=== PATIENT | female | born 2000 | race Two or more races ===

== ENCOUNTER 2019-10-06 01:11 | Inpatient (IN) ==
[2019-10-06 02:18] LABS: Basophils % 0.1 % (0.0-0.8); Hematocrit 27.9 VOL% (35.7-47.0); Hemoglobin 9.2 GM/DL (12.0-16.0); Immature Granulocytes % 0.9 %; Immature Granulocytes Absolute 0.17 #; Lymphocytes # 1.3 10*3/uL (1.4-4.0); Mean Platelet Volume 10.5 FL (9.6-12.0); Monocytes % 5.4 % (1.7-12.7); Neutrophils % 86.6 % (38.7-73.9); Platelet Count 323 T/CUMM (130-400); Red Cell Distribution Width 12.3 % (9.3-17.3); White Blood Count 17.9 T/CUMM (4-12)
[2019-10-06 02:30] LABS: Alanine Aminotransferase 11 U/L (13-56); Albumin 2.5 G/DL (3.4-5.0); Alkaline Phosphatase 193 U/L (45-117); Aspartate Amino Transferase 27 U/L (0-37); Bilirubin,Total < 0.39 MG/DL (0.2-1.0); Blood Urea Nitrogen 4 MG/DL (7-18); Calcium 9.2 MG/DL (8.5-10.1); Estimated Glom Filtration Rate 131 ML/MIN; Glucose 112 MG/DL (74-106); Osmolality,Calculated 272.7 MOS/KG (273-304); Total Protein 6.9 G/DL (6.4-8.3)
[2019-10-06 02:31] LABS: Ferritin 17.7 ng/ml (8-252)
[2019-10-06] MEDS ORDERED: ONDANSETRON 4 MG/2 ML VIAL IV PRN (03:05)
[2019-10-06] MEDS ORDERED: cefTRIAXone 1,000 MG VIAL ONE (03:18)
[2019-10-06] MEDS ORDERED: SODIUM CHLORIDE 0.9% 100 ML IV ONE (03:18)
[2019-10-06] MEDS: cefTRIAXone 1,000 MG in SYRINGE 1 EACH IV SCH (03:30)
[2019-10-06] MEDS ORDERED: methylPREDNISolone SOD SUC 125 MG/2 ML VIAL IV STA (03:56)
[2019-10-06] MEDS ORDERED: AZITHROMYCIN INJ 500 MG in SODIUM CHLORIDE 0.9% 250 ML IV SCH (04:00)
[2019-10-06] MEDS: ACETAMINOPHEN 325 MG TABLET PO PRN ×2 (04:10→23:56)
[2019-10-06] MEDS ORDERED: AZITHROMYCIN 500 MG VIAL IV ONE (04:49)
[2019-10-06] MEDS ORDERED: ALBUTEROL 2.5 MG/3 ML NEB RESP TX STA (05:37)
[2019-10-06] MEDS ORDERED: methylPREDNISolone SOD SUC 125 MG/2 ML VIAL IV SCH (05:37)
[2019-10-06] MEDS ORDERED: POTASSIUM CHLORIDE 20 MEQ TABLET PO ONE (07:51)
[2019-10-06] MEDS: ALBUTEROL INHALER 18 GM INH SCH ×5 (08:32→23:55)
[2019-10-06] MEDS: BENZOCAINE/MENTHOL LOZENGE 18/BOX PO PRN ×2 (10:00→14:21)
[2019-10-06] MEDS ORDERED: CETIRIZINE 10 MG TABLET PO PRN (10:16)
[2019-10-06] MEDS: DEXAMETHASONE 4 MG/1 ML VIAL IV SCH (11:10)
[2019-10-06] MEDS: FAMOTIDINE 20 MG TABLET PO SCH (11:32)
[2019-10-06] MEDS: guaiFENesin 200 MG/10 ML UDCUP PO PRN (21:36)
[2019-10-07] MEDS: ALBUTEROL INHALER 18 GM INH SCH ×6 (02:15→23:15)
[2019-10-07] MEDS: cefTRIAXone 1,000 MG in SYRINGE 1 EACH IV SCH (03:05)
[2019-10-07] MEDS: guaiFENesin 200 MG/10 ML UDCUP PO PRN (04:01)
[2019-10-07] MEDS: BENZOCAINE/MENTHOL LOZENGE 18/BOX PO PRN (04:01)
[2019-10-07] MEDS ORDERED: LORazepam 2 MG/1 ML VIAL IV ONE ×2 (04:30→08:33)
[2019-10-07 04:44] LABS: Allen Test Positive; Pt O2 Delivery Device Other
[2019-10-07 04:56] LABS: ABG Base Excess -0.8 MMOL/L (-2.5-2.5); ABG HCO3 23.8 MMOL/L (20-26); ABG Oxygen Saturation 97.8 % (95-100); ABG PCO2 34.7 MM HG (35-48); ABG PH 7.432 (7.35-7.45); ABG PO2 93.3 MM HG (80-95); ABG TCO2 21.4 MMOL/L (23-27)
[2019-10-07 05:43] LABS: Apearance,Urine Slightly Hazy (Clear); Bacteria,Urine Occasional /HPF (Few); Bilirubin,Urine Negative (Negative); Blood, Urine Negative (Negative); Glucose,Urine (UA) Negative (Negative); Ketones,Urine 80 mg/dL (Negative); Mucus,Urine Many /LPF (Occasional); Nitrite,Urine Negative (Negative); Protein,Urine 30 MG/DL; RBC,Urine 5 /HPF (0-4); Squamous Epithelial Cell,Urine Many /HPF (0-10); Urine Color Amber (Yellow); Urine Specific Gravity 1.027 (1.001-1.035); WBC,Urine 6 /HPF (0-6)
[2019-10-07 05:58] LABS: Basophils % 0.2 % (0.0-0.8); Eosinophils # 0.1 10*3/uL (0.0-0.87); Eosinophils % 0.3 % (0.00-10.9); Hematocrit 25.1 VOL% (35.7-47.0); Hemoglobin 8.4 GM/DL (12.0-16.0); Immature Granulocytes % 0.8 %; Immature Granulocytes Absolute 0.22 #; Lymphocytes # 2.8 10*3/uL (1.4-4.0); Lymphocytes % 10.7 % (21.3-54.2); Mean Corpuscular HGB Conc 33.5 GM/DL (32-36); Mean Corpuscular Volume 92.6 FL (87-102); Mean Platelet Volume 10.2 FL (9.6-12.0); Monocytes % 3.9 % (1.7-12.7); NRBC # 0.02 10*3/uL; Neutrophils % 84.1 % (38.7-73.9); Platelet Count 252 T/CUMM (130-400); Red Blood Count 2.71 MC/CUMM (3.8-5.5); Red Cell Distribution Width 12.3 % (9.3-17.3)
[2019-10-07] MEDS: guaiFENesin/CODEINE 5 ML LIQUID PO PRN ×3 (06:02→20:05)
[2019-10-07 06:20] LABS: Bilirubin,Total 0.5 MG/DL (0.2-1.0); Calcium 8.3 MG/DL (8.5-10.1); Osmolality,Calculated 275.4 MOS/KG (273-304); Total Protein 5.6 G/DL (6.4-8.3)
[2019-10-07 06:21] LABS: Microcytosis 1+; Polychromasia Slight
[2019-10-07 06:22] LABS: Ovalocytes Slight; Platelet Estimate Normal
[2019-10-07] MEDS ORDERED: FUROSEMIDE 40 MG/4 ML VIAL IV ONE (08:53)
[2019-10-07] MEDS ORDERED: DEXTROSE 5% LACTATED RINGERS 1,000 ML IV SCH (09:00)
[2019-10-07] MEDS: FAMOTIDINE 20 MG TABLET PO SCH (09:16)
[2019-10-07] MEDS: AZITHROMYCIN 250 MG TABLET PO SCH (09:16)
[2019-10-07] MEDS: DEXAMETHASONE 4 MG/1 ML VIAL IV SCH (09:16)
[2019-10-07] MEDS: POTASSIUM CHLORIDE 20 MEQ TABLET PO SCH ×4 (09:16→20:05)
[2019-10-07 09:34] LABS: ABG Base Excess -1.3 MMOL/L (-2.5-2.5); ABG HCO3 23.2 MMOL/L (20-26); ABG PCO2 37.7 MM HG (35-48); ABG PH 7.397 (7.35-7.45); ABG PO2 66.2 MM HG (80-95); ABG TCO2 21.3 MMOL/L (23-27); Allen Test Positive; Pt O2 Delivery Device Other
[2019-10-07 13:21] LABS: ABG Base Excess -1.2 MMOL/L (-2.5-2.5); ABG HCO3 23.4 MMOL/L (20-26); ABG Oxygen Saturation 93.8 % (95-100); ABG PCO2 39.1 MM HG (35-48); ABG PH 7.389 (7.35-7.45); ABG PO2 72.5 MM HG (80-95); ABG TCO2 21.9 MMOL/L (23-27)
[2019-10-07] MEDS ORDERED: LORazepam 2 MG/1 ML VIAL IV PRN (13:42)
[2019-10-07] MEDS: DEXTROSE 5% LACTATED RINGERS 1,000 ML IV SCH ×2 (14:00→23:54)
[2019-10-07 21:34] LABS: ABG Base Excess -1.1 MMOL/L (-2.5-2.5); ABG HCO3 22.7 MMOL/L (20-26); ABG PCO2 34.4 MM HG (35-48); ABG PH 7.438 (7.35-7.45); ABG PO2 69.3 MM HG (80-95); ABG TCO2 23.8 MMOL/L (23-27); Allen Test Positive; Pt O2 Delivery Device Other
[2019-10-07] MEDS ORDERED: ceFAZolin 2,000 MG in PREMIX 1 EACH IV ONE (23:44)
[2019-10-08] MEDS ORDERED: OXYTOCIN 10 UNIT/ML VIAL ONE (00:13)
[2019-10-08] MEDS ORDERED: MIDAZOLAM 100 MG in SODIUM CHLORIDE 0.9% 80 ML IV PRN (00:47)
[2019-10-08 00:54] LABS: Cord Venous Blood HCO3 26.4 MMOL/L; Cord Venous Blood PCO2 69.8 MMHG; Cord Venous Blood PO2 8.9 MMHG
[2019-10-08 00:59] LABS: Cord Arterial Blood HCO3 19.1 MMOL/L
[2019-10-08] MEDS: DEXTROSE 5% LACTATED RINGERS 1,000 ML IV SCH ×3 (01:00→14:32)
[2019-10-08] MEDS ORDERED: ONDANSETRON 4 MG/2 ML VIAL IV PRN (01:05)
[2019-10-08] MEDS ORDERED: MAGNESIUM HYDROXIDE SUSP 30 ML UDCUP PO PRN (01:05)
[2019-10-08] MEDS ORDERED: RHO(D) IMMUNE GLOBULIN 300 MCG SYRINGE IM ONE (01:05)
[2019-10-08] MEDS ORDERED: ACETAMINOPHEN 325 MG TABLET PO PRN (01:05)
[2019-10-08] MEDS ORDERED: SIMETHICONE CHEW 80 MG TABLET PO PRN (01:05)
[2019-10-08] MEDS ORDERED: IBUPROFEN 800 MG TABLET PO PRN (01:05)
[2019-10-08] MEDS: fentaNYL INJ 1,250 MCG in SODIUM CHLORIDE 0.9% 225 ML IV PRN ×3 (01:30→18:25)
[2019-10-08] MEDS ORDERED: OXYTOCIN/LR 20 UNIT/1,000 ML BAG IV ONE (01:30)
[2019-10-08 01:49] LABS: ABG Base Excess -1.9 MMOL/L (-2.5-2.5); ABG HCO3 22.9 MMOL/L (20-26); ABG Oxygen Saturation 99.2 % (95-100); ABG PCO2 40.5 MM HG (35-48); ABG PH 7.367 (7.35-7.45); ABG TCO2 21.6 MMOL/L (23-27)
[2019-10-08] MEDS ORDERED: MEPERIDINE 50 MG/1 ML VIAL IV PRN (02:06)
[2019-10-08] MEDS ORDERED: propofoL 200 MG/20 ML VIAL IV ONE (02:07)
[2019-10-08] MEDS: cefTRIAXone 1,000 MG in SYRINGE 1 EACH IV SCH (03:27)
[2019-10-08 05:25] LABS: ABG Base Excess -0.4 MMOL/L (-2.5-2.5); ABG HCO3 24.5 MMOL/L (20-26); ABG Oxygen Saturation 97.5 % (95-100); ABG PCO2 41.2 MM HG (35-48); ABG PH 7.392 (7.35-7.45); ABG PO2 117.1 MM HG (80-95); ABG TCO2 25.8 MMOL/L (23-27); Allen Test Positive; Pt O2 Delivery Device Ventilator
[2019-10-08] MEDS: ALBUTEROL INHALER 18 GM INH SCH ×5 (05:31→23:15)
[2019-10-08 05:39] LABS: Basophils % 0.1 % (0.0-0.8); Eosinophils # 0.1 10*3/uL (0.0-0.87); Eosinophils % 0.4 % (0.00-10.9); Hematocrit 23.6 VOL% (35.7-47.0); Hemoglobin 7.9 GM/DL (12.0-16.0); Immature Granulocytes % 0.7 %; Immature Granulocytes Absolute 0.15 #; Lymphocytes # 1.7 10*3/uL (1.4-4.0); Lymphocytes % 8.3 % (21.3-54.2); Mean Corpuscular HGB Conc 33.5 GM/DL (32-36); Mean Corpuscular Volume 92.9 FL (87-102); Mean Platelet Volume 10.2 FL (9.6-12.0); Monocytes % 3.1 % (1.7-12.7); Neutrophils % 87.4 % (38.7-73.9); Platelet Count 227 T/CUMM (130-400); Red Blood Count 2.54 MC/CUMM (3.8-5.5); Red Cell Distribution Width 12.4 % (9.3-17.3); White Blood Count 20.9 T/CUMM (4-12)
[2019-10-08 06:01] LABS: Calcium 7.8 MG/DL (8.5-10.1); Osmolality,Calculated 276.4 MOS/KG (273-304)
[2019-10-08 06:16] LABS: Hypochromasia 1+; Lymphocytes 7 % (20-55); Microcytosis 1+; Platelet Estimate Adequate; Segmented Neutrophils 93 % (50-85); Total Cells Counted 100
[2019-10-08] MEDS: DEXAMETHASONE 4 MG/1 ML VIAL IV SCH (08:06)
[2019-10-08] MEDS ORDERED: FUROSEMIDE 40 MG/4 ML VIAL IV ONE (08:09)
[2019-10-08 08:28] LABS: Ferritin 61.6 ng/ml (8-252)
[2019-10-08] MEDS: MULTIVITAMIN (PRENATAL) TABLET PO SCH (08:50)
[2019-10-08] MEDS: FAMOTIDINE 20 MG TABLET PO SCH ×2 (08:50→20:08)
[2019-10-08] MEDS: AZITHROMYCIN 250 MG TABLET PO SCH (08:50)
[2019-10-08] MEDS ORDERED: SODIUM CHLORIDE 0.9% 1,000 ML IV PRN (08:58)
[2019-10-08] MEDS: DOCUSATE SODIUM 100 MG CAPSULE PO SCH ×2 (09:25→20:08)
[2019-10-08] MEDS: methylPREDNISolone SOD SUC 40 MG/1 ML VIAL IV SCH ×2 (09:31→16:25)
[2019-10-08] MEDS: ASCORBIC ACID 500 MG TABLET PO SCH (20:08)
[2019-10-09] MEDS: DEXTROSE 5% LACTATED RINGERS 1,000 ML IV SCH ×3 (00:30→12:08)
[2019-10-09] MEDS: methylPREDNISolone SOD SUC 40 MG/1 ML VIAL IV SCH ×3 (00:33→16:27)
[2019-10-09] MEDS: fentaNYL INJ 1,250 MCG in SODIUM CHLORIDE 0.9% 225 ML IV PRN ×4 (01:10→18:07)
[2019-10-09] MEDS: cefTRIAXone 1,000 MG in SYRINGE 1 EACH IV SCH (03:24)
[2019-10-09 04:10] LABS: Basophils % 0.1 % (0.0-0.8); Hematocrit 32.9 VOL% (35.7-47.0); Immature Granulocytes % 1.4 %; Immature Granulocytes Absolute 0.25 #; Lymphocytes # 1.6 10*3/uL (1.4-4.0); Lymphocytes % 8.9 % (21.3-54.2); Mean Corpuscular HGB Conc 32.8 GM/DL (32-36); Mean Corpuscular Volume 93.5 FL (87-102); Mean Platelet Volume 10.7 FL (9.6-12.0); Neutrophils % 86.6 % (38.7-73.9); Platelet Count 203 T/CUMM (130-400); Red Cell Distribution Width 13.5 % (9.3-17.3); White Blood Count 17.6 T/CUMM (4-12)
[2019-10-09 04:17] LABS: Hemoglobin 10.8 GM/DL (12.0-16.0); Red Blood Count 3.52 MC/CUMM (3.8-5.5)
[2019-10-09 04:36] LABS: Albumin 1.8 G/DL (3.4-5.0); Bilirubin,Total 0.4 MG/DL (0.2-1.0); Calcium 8.4 MG/DL (8.5-10.1); Osmolality,Calculated 276.5 MOS/KG (273-304); Total Protein 5.3 G/DL (6.4-8.3)
[2019-10-09 04:39] LABS: Calcium 8.2 MG/DL (8.5-10.1); Osmolality,Calculated 278.4 MOS/KG (273-304)
[2019-10-09 04:58] LABS: ABG Base Excess 1.5 MMOL/L (-2.5-2.5); ABG HCO3 25.8 MMOL/L (20-26); ABG Oxygen Saturation 98.2 % (95-100); ABG PCO2 55.1 MM HG (35-48); ABG PH 7.323 (7.35-7.45); ABG TCO2 26.1 MMOL/L (23-27); Allen Test Positive; Pt O2 Delivery Device Ventilator
[2019-10-09 05:23] LABS: Calcium 8.4 MG/DL (8.5-10.1); Osmolality,Calculated 276.5 MOS/KG (273-304)
[2019-10-09] MEDS: ALBUTEROL INHALER 18 GM INH SCH ×4 (06:23→16:27)
[2019-10-09] MEDS: ASCORBIC ACID 500 MG TABLET PO SCH ×2 (08:22→20:40)
[2019-10-09] MEDS: FAMOTIDINE 20 MG TABLET PO SCH ×2 (08:22→20:40)
[2019-10-09] MEDS: AZITHROMYCIN 250 MG TABLET PO SCH (08:22)
[2019-10-09] MEDS: DOCUSATE SODIUM 100 MG CAPSULE PO SCH ×2 (08:28→20:40)
[2019-10-09] MEDS: MULTIVITAMIN (PRENATAL) TABLET PO SCH (08:29)
[2019-10-09] MEDS: CETIRIZINE 1 MG/ML 30 ML/BOTTLE PO SCH (08:34)
[2019-10-09] MEDS: MEROPENEM 500 MG in SODIUM CHLORIDE 0.9% 100 ML IV SCH ×3 (11:23→22:40)
[2019-10-09 11:28] LABS: Barbiturates Screen,Urine Negative (Negative); Benzodiazepines Screen,Urine Positive (Negative); Cannabinoid Screen,Urine Negative (Negative); Opiate Screen,Urine Positive (Negative); Phencyclidine Screen,Urine Negative (Negative)
[2019-10-09 11:32] LABS: ABG Base Excess 1.5 MMOL/L (-2.5-2.5); ABG HCO3 25.7 MMOL/L (20-26); ABG Oxygen Saturation 93.3 % (95-100); ABG PCO2 55.7 MM HG (35-48); ABG PH 7.319 (7.35-7.45); ABG PO2 77.5 MM HG (80-95); ABG TCO2 26.2 MMOL/L (23-27)
[2019-10-09] MEDS: FUROSEMIDE 40 MG/4 ML VIAL IV SCH (12:10)
[2019-10-09] MEDS: VANCOMYCIN INJ 1,250 MG in SODIUM CHLORIDE 0.9% 250 ML IV SCH ×2 (12:27→20:39)
[2019-10-09 12:56] LABS: HIV Antigen/Antibody Result Nonreactive (Nonreactive)
[2019-10-09] MEDS: ALBUTEROL/IPRATROPIUM 3 ML NEB RESP TX SCH (20:06)
[2019-10-10] MEDS: methylPREDNISolone SOD SUC 40 MG/1 ML VIAL IV SCH ×3 (00:57→16:05)
[2019-10-10] MEDS: LIDOCAINE 1% 20 ML VIAL RESP TX SCH ×4 (01:02→20:28)
[2019-10-10] MEDS: ALBUTEROL/IPRATROPIUM 3 ML NEB RESP TX SCH ×4 (01:02→20:28)
[2019-10-10] MEDS: fentaNYL INJ 1,250 MCG in SODIUM CHLORIDE 0.9% 225 ML IV PRN ×4 (02:00→19:46)
[2019-10-10 03:25] LABS: ABG Base Excess 4.2 MMOL/L (-2.5-2.5); ABG HCO3 28.2 MMOL/L (20-26); ABG Oxygen Saturation 99.7 % (95-100); ABG PCO2 54.9 MM HG (35-48); ABG PH 7.359 (7.35-7.45); ABG TCO2 27.8 MMOL/L (23-27)
[2019-10-10] MEDS: VANCOMYCIN INJ 1,250 MG in SODIUM CHLORIDE 0.9% 250 ML IV SCH ×2 (03:35→13:19)
[2019-10-10] MEDS: MEROPENEM 500 MG in SODIUM CHLORIDE 0.9% 100 ML IV SCH ×4 (03:35→22:25)
[2019-10-10 03:58] LABS: Basophils % 0.2 % (0.0-0.8); Eosinophils # 0.1 10*3/uL (0.0-0.87); Eosinophils % 0.3 % (0.00-10.9); Hematocrit 31.9 VOL% (35.7-47.0); Hemoglobin 10.4 GM/DL (12.0-16.0); Immature Granulocytes % 2.2 %; Immature Granulocytes Absolute 0.39 #; Lymphocytes # 1.8 10*3/uL (1.4-4.0); Lymphocytes % 10.1 % (21.3-54.2); Mean Corpuscular HGB Conc 32.6 GM/DL (32-36); Mean Corpuscular Volume 93.3 FL (87-102); Mean Platelet Volume 10.8 FL (9.6-12.0); Monocytes % 5.2 % (1.7-12.7); Platelet Count 189 T/CUMM (130-400); Red Blood Count 3.42 MC/CUMM (3.8-5.5); Red Cell Distribution Width 13.1 % (9.3-17.3); White Blood Count 17.6 T/CUMM (4-12)
[2019-10-10 04:50] LABS: Calcium 8.4 MG/DL (8.5-10.1); Osmolality,Calculated 278.4 MOS/KG (273-304)
[2019-10-10] MEDS: FUROSEMIDE 40 MG/4 ML VIAL IV SCH ×2 (08:17→20:19)
[2019-10-10] MEDS: ASCORBIC ACID 500 MG TABLET PO SCH ×2 (08:19→20:18)
[2019-10-10] MEDS: FAMOTIDINE 20 MG TABLET PO SCH ×2 (08:20→20:18)
[2019-10-10] MEDS: MULTIVITAMIN (PRENATAL) TABLET PO SCH (08:20)
[2019-10-10] MEDS: AZITHROMYCIN 250 MG TABLET PO SCH (08:20)
[2019-10-10] MEDS: DOCUSATE SODIUM 100 MG CAPSULE PO SCH ×2 (08:20→20:18)
[2019-10-10] MEDS: CETIRIZINE 1 MG/ML 30 ML/BOTTLE PO SCH (08:28)
[2019-10-10] MEDS: SERTRALINE 50 MG TABLET PO SCH (08:29)
[2019-10-10] MEDS ORDERED: SPIRONOLACTONE 25 MG TABLET PO ONE (14:00)
[2019-10-10] MEDS ORDERED: VANCOMYCIN INJ 1,500 MG in SODIUM CHLORIDE 0.9% 500 ML IV SCH (18:00)
[2019-10-10] MEDS: VANCOMYCIN INJ 1,500 MG in SODIUM CHLORIDE 0.9% 500 ML IV SCH (20:18)
[2019-10-11] MEDS: fentaNYL INJ 1,250 MCG in SODIUM CHLORIDE 0.9% 225 ML IV PRN ×2 (00:41→06:16)
[2019-10-11] MEDS: methylPREDNISolone SOD SUC 40 MG/1 ML VIAL IV SCH ×3 (01:00→21:07)
[2019-10-11] MEDS: LIDOCAINE 1% 20 ML VIAL RESP TX SCH ×4 (01:33→19:14)
[2019-10-11] MEDS: ALBUTEROL/IPRATROPIUM 3 ML NEB RESP TX SCH ×4 (01:33→19:23)
[2019-10-11] MEDS: VANCOMYCIN INJ 1,500 MG in SODIUM CHLORIDE 0.9% 500 ML IV SCH ×2 (04:32→13:12)
[2019-10-11] MEDS: MEROPENEM 500 MG in SODIUM CHLORIDE 0.9% 100 ML IV SCH ×4 (04:32→22:58)
[2019-10-11 04:55] LABS: Basophils % 0.2 % (0.0-0.8); Eosinophils # 0.1 10*3/uL (0.0-0.87); Eosinophils % 0.7 % (0.00-10.9); Hematocrit 32.2 VOL% (35.7-47.0); Hemoglobin 10.5 GM/DL (12.0-16.0); Immature Granulocytes % 2.7 %; Immature Granulocytes Absolute 0.43 #; Lymphocytes # 1.7 10*3/uL (1.4-4.0); Lymphocytes % 10.7 % (21.3-54.2); Mean Corpuscular HGB Conc 32.6 GM/DL (32-36); Mean Corpuscular Volume 92.5 FL (87-102); Mean Platelet Volume 10.6 FL (9.6-12.0); Monocytes % 4.8 % (1.7-12.7); Neutrophils % 80.9 % (38.7-73.9); Platelet Count 219 T/CUMM (130-400); Red Blood Count 3.48 MC/CUMM (3.8-5.5); Red Cell Distribution Width 12.8 % (9.3-17.3); White Blood Count 15.8 T/CUMM (4-12)
[2019-10-11 04:59] LABS: Calcium 8.1 MG/DL (8.5-10.1); Osmolality,Calculated 282.3 MOS/KG (273-304)
[2019-10-11 05:03] LABS: ABG Base Excess 7.3 MMOL/L (-2.5-2.5); ABG HCO3 31.8 MMOL/L (20-26); ABG PCO2 44.2 MM HG (35-48); ABG PH 7.475 (7.35-7.45); ABG PO2 143.2 MM HG (80-95); ABG TCO2 33.2 MMOL/L (23-27); Allen Test Positive; Pt O2 Delivery Device Ventilator
[2019-10-11] MEDS: MULTIVITAMIN (PRENATAL) TABLET PO SCH (08:24)
[2019-10-11] MEDS: ASCORBIC ACID 500 MG TABLET PO SCH ×2 (08:25→21:07)
[2019-10-11] MEDS: SERTRALINE 50 MG TABLET PO SCH (08:26)
[2019-10-11] MEDS: AZITHROMYCIN 250 MG TABLET PO SCH (08:26)
[2019-10-11] MEDS: DOCUSATE SODIUM 100 MG CAPSULE PO SCH ×2 (08:26→21:07)
[2019-10-11] MEDS: CETIRIZINE 1 MG/ML 30 ML/BOTTLE PO SCH (08:26)
[2019-10-11] MEDS: FAMOTIDINE 20 MG TABLET PO SCH ×2 (08:26→21:07)
[2019-10-11] MEDS: FUROSEMIDE 40 MG/4 ML VIAL IV SCH ×2 (08:27→21:09)
[2019-10-11] MEDS: fentaNYL INJ 2,500 MCG in SODIUM CHLORIDE 0.9% 75 ML IV PRN ×2 (10:16→17:38)
[2019-10-11] MEDS: ENOXAPARIN 40 MG/0.4 ML SYRINGE SUBCUT SCH (11:44)
[2019-10-11] MEDS ORDERED: SPIRONOLACTONE 25 MG TABLET PO ONE (14:00)
[2019-10-12] MEDS: LIDOCAINE 1% 20 ML VIAL RESP TX SCH ×4 (00:47→19:25)
[2019-10-12] MEDS: ALBUTEROL/IPRATROPIUM 3 ML NEB RESP TX SCH ×4 (00:55→19:25)
[2019-10-12] MEDS: fentaNYL INJ 2,500 MCG in SODIUM CHLORIDE 0.9% 75 ML IV PRN (00:56)
[2019-10-12] MEDS: MEROPENEM 500 MG in SODIUM CHLORIDE 0.9% 100 ML IV SCH ×4 (03:51→23:22)
[2019-10-12 04:02] LABS: Basophils % 0.2 % (0.0-0.8); Eosinophils # 0.2 10*3/uL (0.0-0.87); Eosinophils % 1.3 % (0.00-10.9); Immature Granulocytes % 2.7 %; Immature Granulocytes Absolute 0.41 #; Lymphocytes # 2.5 10*3/uL (1.4-4.0); Lymphocytes % 16.2 % (21.3-54.2); Mean Corpuscular HGB Conc 33.3 GM/DL (32-36); Mean Corpuscular Volume 91.4 FL (87-102); Mean Platelet Volume 10.1 FL (9.6-12.0); Monocytes % 6.3 % (1.7-12.7); Neutrophils % 73.3 % (38.7-73.9); Platelet Count 268 T/CUMM (130-400); Red Blood Count 3.61 MC/CUMM (3.8-5.5); Red Cell Distribution Width 12.6 % (9.3-17.3); White Blood Count 15.2 T/CUMM (4-12)
[2019-10-12 04:18] LABS: Alanine Aminotransferase 45 U/L (13-56); Albumin 1.9 G/DL (3.4-5.0); Alkaline Phosphatase 120 U/L (45-117); Aspartate Amino Transferase 37 U/L (0-37); Bilirubin,Total < 0.39 MG/DL (0.2-1.0); Blood Urea Nitrogen 13 MG/DL (7-18); Calcium 8.2 MG/DL (8.5-10.1); Estimated Glom Filtration Rate 152 ML/MIN; Glucose 113 MG/DL (74-106); Osmolality,Calculated 279.4 MOS/KG (273-304); Total Protein 5.5 G/DL (6.4-8.3)
[2019-10-12 04:44] LABS: ABG Base Excess 9.6 MMOL/L (-2.5-2.5); ABG HCO3 33.3 MMOL/L (20-26); ABG Oxygen Saturation 99.1 % (95-100); ABG PCO2 43.5 MM HG (35-48); ABG TCO2 30.1 MMOL/L (23-27); Allen Test Positive; Pt O2 Delivery Device Ventilator
[2019-10-12] MEDS ORDERED: POTASSIUM CHLORIDE 20 MEQ/15 ML UDCUP PER TUBE ONE (08:07)
[2019-10-12] MEDS: methylPREDNISolone SOD SUC 40 MG/1 ML VIAL IV SCH ×2 (08:30→21:24)
[2019-10-12] MEDS: ENOXAPARIN 40 MG/0.4 ML SYRINGE SUBCUT SCH (08:30)
[2019-10-12] MEDS: FUROSEMIDE 40 MG/4 ML VIAL IV SCH (08:31)
[2019-10-12] MEDS: BENZONATATE 100 MG CAPSULE PO PRN (09:44)
[2019-10-12] MEDS: FAMOTIDINE 20 MG TABLET PO SCH ×2 (10:10→21:23)
[2019-10-12] MEDS: MULTIVITAMIN (PRENATAL) TABLET PO SCH (10:10)
[2019-10-12] MEDS: ASCORBIC ACID 500 MG TABLET PO SCH ×2 (10:10→21:23)
[2019-10-12] MEDS: DOCUSATE SODIUM 100 MG CAPSULE PO SCH ×2 (10:10→21:23)
[2019-10-12] MEDS: CETIRIZINE 1 MG/ML 30 ML/BOTTLE PO SCH (10:11)
[2019-10-12] MEDS: SERTRALINE 50 MG TABLET PO SCH (10:11)
[2019-10-12] MEDS: POTASSIUM CHLORIDE RIDER 100 ML IV SCH ×4 (10:48→14:05)
[2019-10-12] MEDS ORDERED: PHENOL 1.4% THROAT SPRAY 177 ML BOTTLE PO PRN (15:20)
[2019-10-13] MEDS: ALBUTEROL/IPRATROPIUM 3 ML NEB RESP TX SCH ×4 (01:05→19:17)
[2019-10-13] MEDS: LIDOCAINE 1% 20 ML VIAL RESP TX SCH ×4 (01:05→19:17)
[2019-10-13 04:35] LABS: Basophils % 0.1 % (0.0-0.8); Eosinophils # 0.1 10*3/uL (0.0-0.87); Eosinophils % 0.4 % (0.00-10.9); Hematocrit 33.8 VOL% (35.7-47.0); Hemoglobin 11.5 GM/DL (12.0-16.0); Immature Granulocytes % 1.9 %; Immature Granulocytes Absolute 0.26 #; Lymphocytes # 1.9 10*3/uL (1.4-4.0); Lymphocytes % 13.6 % (21.3-54.2); Mean Corpuscular Volume 90.1 FL (87-102); Mean Platelet Volume 11.3 FL (9.6-12.0); Platelet Count 333 T/CUMM (130-400); Red Blood Count 3.75 MC/CUMM (3.8-5.5); Red Cell Distribution Width 12.8 % (9.3-17.3); White Blood Count 13.9 T/CUMM (4-12)
[2019-10-13] MEDS: MEROPENEM 500 MG in SODIUM CHLORIDE 0.9% 100 ML IV SCH ×4 (05:24→23:19)
[2019-10-13 07:12] LABS: Albumin 2.1 G/DL (3.4-5.0); Bilirubin,Total 0.5 MG/DL (0.2-1.0); Calcium 8.6 MG/DL (8.5-10.1); Osmolality,Calculated 276.5 MOS/KG (273-304); Total Protein 5.7 G/DL (6.4-8.3)
[2019-10-13] MEDS: DOCUSATE SODIUM 100 MG CAPSULE PO SCH ×2 (08:27→20:02)
[2019-10-13] MEDS ORDERED: FUROSEMIDE 40 MG/4 ML VIAL IV SCH (09:00)
[2019-10-13] MEDS: ENOXAPARIN 40 MG/0.4 ML SYRINGE SUBCUT SCH (09:53)
[2019-10-13] MEDS: MULTIVITAMIN (PRENATAL) TABLET PO SCH (09:54)
[2019-10-13] MEDS: ASCORBIC ACID 500 MG TABLET PO SCH ×2 (09:54→20:01)
[2019-10-13] MEDS: FAMOTIDINE 20 MG TABLET PO SCH ×2 (09:54→20:01)
[2019-10-13] MEDS: BENZONATATE 100 MG CAPSULE PO PRN (09:54)
[2019-10-13] MEDS: SERTRALINE 50 MG TABLET PO SCH (09:54)
[2019-10-13] MEDS: CETIRIZINE 1 MG/ML 30 ML/BOTTLE PO SCH (10:12)
[2019-10-13] MEDS: methylPREDNISolone SOD SUC 40 MG/1 ML VIAL IV SCH (10:13)
[2019-10-13] MEDS: SPIRONOLACTONE 25 MG TABLET PO SCH (13:58)
[2019-10-14] MEDS: ALBUTEROL/IPRATROPIUM 3 ML NEB RESP TX SCH ×3 (03:20→14:15)
[2019-10-14] MEDS: LIDOCAINE 1% 20 ML VIAL RESP TX SCH ×3 (03:21→14:15)
[2019-10-14 04:39] LABS: Basophils % 0.2 % (0.0-0.8); Eosinophils # 0.4 10*3/uL (0.0-0.87); Hemoglobin 11.8 GM/DL (12.0-16.0); Immature Granulocytes % 1.9 %; Immature Granulocytes Absolute 0.28 #; Lymphocytes # 3.5 10*3/uL (1.4-4.0); Lymphocytes % 24.5 % (21.3-54.2); Mean Corpuscular HGB Conc 33.7 GM/DL (32-36); Mean Corpuscular Volume 89.3 FL (87-102); Mean Platelet Volume 10.2 FL (9.6-12.0); Monocytes % 8.5 % (1.7-12.7); Neutrophils % 61.9 % (38.7-73.9); Platelet Count 366 T/CUMM (130-400); Red Blood Count 3.92 MC/CUMM (3.8-5.5); Red Cell Distribution Width 12.3 % (9.3-17.3); White Blood Count 14.4 T/CUMM (4-12)
[2019-10-14] MEDS: MEROPENEM 500 MG in SODIUM CHLORIDE 0.9% 100 ML IV SCH ×2 (04:40→11:14)
[2019-10-14 05:00] LABS: Albumin 2.3 G/DL (3.4-5.0); Bilirubin,Total 1.5 MG/DL (0.2-1.0); Calcium 8.2 MG/DL (8.5-10.1); Osmolality,Calculated 275.5 MOS/KG (273-304); Total Protein 5.9 G/DL (6.4-8.3)
[2019-10-14] MEDS ORDERED: POTASSIUM CHLORIDE 20 MEQ TABLET PO ONE ×2 (08:22→11:51)
[2019-10-14] MEDS: SERTRALINE 50 MG TABLET PO SCH (09:42)
[2019-10-14] MEDS: methylPREDNISolone SOD SUC 40 MG/1 ML VIAL IV SCH (09:42)
[2019-10-14] MEDS: DOCUSATE SODIUM 100 MG CAPSULE PO SCH (09:42)
[2019-10-14] MEDS: FAMOTIDINE 20 MG TABLET PO SCH (09:42)
[2019-10-14] MEDS: SPIRONOLACTONE 25 MG TABLET PO SCH (09:42)
[2019-10-14] MEDS: ASCORBIC ACID 500 MG TABLET PO SCH (09:42)
[2019-10-14] MEDS: ENOXAPARIN 40 MG/0.4 ML SYRINGE SUBCUT SCH (09:43)
[2019-10-14] MEDS: MULTIVITAMIN (PRENATAL) TABLET PO SCH (09:59)
[2019-10-14] MEDS: CETIRIZINE 1 MG/ML 30 ML/BOTTLE PO SCH (09:59)
[2019-10-14 11:34] VITALS: BP 158/82
[2019-10-14] MEDS ORDERED: POTASSIUM CHLORIDE 20 MEQ TABLET PO SCH (21:00)
[2019-10-14] MEDS ORDERED: AMOXICILLIN/CLAV 875 MG TABLET PO SCH (21:00)
[2019-10-14] MEDS ORDERED: AMOXICILLIN/CLAV 500 MG TABLET PO SCH (21:00)
== END 2019-10-14 15:42 | disposition home or self-care (01) | DRG 540 ==
LOC: N.ED 01:11 → N.EDINP 01:11 → N.3E 03:59 → N.2E 05:09 → N.CC 10-07 03:55 → N.ICU 10-09 15:00 → N.4E 10-13 16:58
PROVIDERS: ADMIT Obstetrics & Gynecology; ATTEND Obstetrics & Gynecology
PROC: LDCSECT (ICD-10-PCS; 2019-10-08)

== ENCOUNTER 2021-01-01 05:53 | Inpatient (IN) ==
[2021-01-01] MEDS ORDERED: CITRIC ACID/SODIUM CITRATE 30 ML UDCUP PO PRN (06:03)
[2021-01-01] MEDS ORDERED: FAMOTIDINE 20 MG/2 ML VIAL IV PRN (06:03)
[2021-01-01] MEDS ORDERED: ceFAZolin 2,000 MG/50 ML DUPLEX IV PRN (06:03)
[2021-01-01] MEDS ORDERED: OXYTOCIN/LR 30 UNIT/1,000 ML BAG IV PRN (06:05)
[2021-01-01] MEDS ORDERED: OXYTOCIN 10 UNIT/ML VIAL IM ONE (06:27)
[2021-01-01] MEDS ORDERED: INFLUENZA VIRUS VACCINE 0.5 ML SYRINGE IM ONE (06:28)
[2021-01-01] MEDS ORDERED: LACTATED RINGERS 1,000 ML IV SCH ×2 (06:30→10:00)
[2021-01-01 06:50] LABS: Basophils # 0.1 10*3/uL (0.0-0.2); Basophils % 0.3 % (0.0-0.8); Eosinophils # 0.2 10*3/uL (0.0-0.87); Hematocrit 31.8 VOL% (35.7-47.0); Hemoglobin 10.4 GM/DL (12.0-16.0); Immature Granulocytes % 0.5 %; Immature Granulocytes Absolute 0.08 #; Lymphocytes # 2.9 10*3/uL (1.4-4.0); Lymphocytes % 18.6 % (21.3-54.2); Mean Corpuscular HGB Conc 32.7 GM/DL (32-36); Mean Corpuscular Volume 92.4 FL (87-102); Mean Platelet Volume 10.5 FL (9.6-12.0); Monocytes % 8.5 % (1.7-12.7); Neutrophils % 71.1 % (38.7-73.9); Platelet Count 313 T/CUMM (130-400); Red Blood Count 3.44 MC/CUMM (3.8-5.5); Red Cell Distribution Width 14.6 % (9.3-17.3); White Blood Count 15.3 T/CUMM (4-12)
[2021-01-01 07:13] LABS: Albumin 2.8 G/DL (3.4-5.0); Bilirubin,Total 0.4 MG/DL (0.20-1.00); Calcium 8.6 MG/DL (8.5-10.1); Osmolality,Calculated 272.5 MOS/KG (273-304); Potassium 3.6 MMOL/L (3.5-5.1); Total Protein 6.8 G/DL (6.4-8.2)
[2021-01-01] MEDS ORDERED: BUPIVACAINE SPINAL 0.75% 2 ML AMP SPINAL ONE (07:51)
[2021-01-01] MEDS ORDERED: DEXAMETHASONE 4 MG/1 ML VIAL ONE (08:26)
[2021-01-01] MEDS ORDERED: ONDANSETRON 4 MG/2 ML VIAL ONE (08:26)
[2021-01-01] MEDS ORDERED: PHENYLEPHRINE 1 MG/10 ML SYRINGE IV ONE (08:26)
[2021-01-01 08:37] LABS: Cord Arterial Blood HCO3 26.8 MMOL/L; Cord Venous Blood HCO3 22.7 MMOL/L; Cord Venous Blood PCO2 47.1 MMHG; Cord Venous Blood PO2 30.8
[2021-01-01] MEDS ORDERED: ACETAMINOPHEN INJ 1,000 MG/100 ML VIAL IV ONE (08:38)
[2021-01-01] MEDS ORDERED: KETOROLAC 30 MG/1 ML VIAL ONE (08:38)
[2021-01-01 08:58] LABS: Bilirubin,Urine Negative (Negative); Blood, Urine Negative (Negative); Glucose,Urine (UA) Negative (Negative); Ketones,Urine Negative (Negative); Mucus,Urine Few /LPF (Occasional); Nitrite,Urine Negative (Negative); Protein,Urine Negative; RBC,Urine 1 /HPF (0-4); Squamous Epithelial Cell,Urine Occasional /HPF (0-10); Urine Appearance CLEAR (Clear); Urine Color Yellow (Yellow); Urine Specific Gravity 1.016 (1.001-1.035); Urine Urobilinogen < 2.0 EU/DL (0.2-1.0)
[2021-01-01] MEDS ORDERED: OXYTOCIN/LR 20 UNIT/1,000 ML BAG IV ONE (09:49)
[2021-01-01] MEDS ORDERED: RHO(D) IMMUNE GLOBULIN 300 MCG SYRINGE IM ONE (09:49)
[2021-01-01] MEDS ORDERED: ACETAMINOPHEN 325 MG TABLET PO PRN (09:49)
[2021-01-01] MEDS ORDERED: SIMETHICONE CHEW 80 MG TABLET PO PRN (09:49)
[2021-01-01] MEDS ORDERED: MAGNESIUM HYDROXIDE SUSP 30 ML UDCUP PO PRN (09:49)
[2021-01-01] MEDS ORDERED: ONDANSETRON 4 MG/2 ML VIAL IV PRN (09:49)
[2021-01-01] MEDS: ACETAMINOPHEN 500 MG TABLET PO SCH ×2 (16:10→23:27)
[2021-01-01 16:47] LABS: Basophils % 0.2 % (0.0-0.8); Hematocrit 30.4 VOL% (35.7-47.0); Hemoglobin 10.2 GM/DL (12.0-16.0); Immature Granulocytes % 0.6 %; Immature Granulocytes Absolute 0.12 #; Lymphocytes # 1.6 10*3/uL (1.4-4.0); Lymphocytes % 7.8 % (21.3-54.2); Mean Corpuscular HGB Conc 33.6 GM/DL (32-36); Mean Corpuscular Volume 91.8 FL (87-102); Mean Platelet Volume 10.3 FL (9.6-12.0); Neutrophils % 88.4 % (38.7-73.9); Platelet Count 312 T/CUMM (130-400); Red Blood Count 3.31 MC/CUMM (3.8-5.5); Red Cell Distribution Width 14.2 % (9.3-17.3); White Blood Count 20.3 T/CUMM (4-12)
[2021-01-01] MEDS: KETOROLAC 30 MG/1 ML VIAL IV SCH ×2 (17:14→23:27)
[2021-01-01] MEDS: DOCUSATE SODIUM 100 MG CAPSULE PO SCH (21:14)
[2021-01-01] MEDS: NICOTINE 7 MG/24 HR PATCH TRANSDERM PRN (21:17)
[2021-01-01 21:19] LABS: Hypochromasia Slight; Lymphocytes 7 % (20-55); Platelet Estimate Normal; Segmented Neutrophils 91 % (50-85); Total Cells Counted 100
[2021-01-02] MEDS: ACETAMINOPHEN 500 MG TABLET PO SCH (02:01)
[2021-01-02] MEDS: KETOROLAC 30 MG/1 ML VIAL IV SCH (05:46)
[2021-01-02] MEDS ORDERED: KETOROLAC 30 MG/1 ML VIAL IV SCH (06:00)
[2021-01-02 06:18] LABS: Basophils % 0.2 % (0.0-0.8); Eosinophils # 0.1 10*3/uL (0.0-0.87); Eosinophils % 0.5 % (0.00-10.9); Hematocrit 26.1 VOL% (35.7-47.0); Hemoglobin 8.5 GM/DL (12.0-16.0); Immature Granulocytes % 0.7 %; Immature Granulocytes Absolute 0.11 #; Lymphocytes # 3.9 10*3/uL (1.4-4.0); Lymphocytes % 26.3 % (21.3-54.2); Mean Corpuscular HGB Conc 32.6 GM/DL (32-36); Mean Corpuscular Volume 91.9 FL (87-102); Mean Platelet Volume 10.8 FL (9.6-12.0); Monocytes % 10.1 % (1.7-12.7); Neutrophils % 62.2 % (38.7-73.9); Platelet Count 265 T/CUMM (130-400); Red Blood Count 2.84 MC/CUMM (3.8-5.5); Red Cell Distribution Width 14.4 % (9.3-17.3); White Blood Count 14.8 T/CUMM (4-12)
[2021-01-02] MEDS: DOCUSATE SODIUM 100 MG CAPSULE PO SCH ×2 (09:09→20:58)
[2021-01-02] MEDS: MULTIVITAMIN (PRENATAL) TABLET PO SCH (09:09)
[2021-01-02] MEDS: FERROUS SULFATE 325 MG TABLET PO SCH ×2 (09:09→20:59)
[2021-01-02] MEDS: IBUPROFEN 800 MG TABLET PO PRN (13:41)
[2021-01-02] MEDS: METOCLOPRAMIDE 10 MG TABLET PO SCH (16:22)
[2021-01-02] MEDS: NICOTINE 7 MG/24 HR PATCH TRANSDERM PRN (23:54)
[2021-01-03] MEDS: METOCLOPRAMIDE 10 MG TABLET PO SCH ×2 (00:01→08:44)
[2021-01-03] MEDS: IBUPROFEN 800 MG TABLET PO PRN ×2 (00:02→08:45)
[2021-01-03] MEDS: MULTIVITAMIN (PRENATAL) TABLET PO SCH (08:44)
[2021-01-03] MEDS: FERROUS SULFATE 325 MG TABLET PO SCH (08:44)
[2021-01-03] MEDS: DOCUSATE SODIUM 100 MG CAPSULE PO SCH (08:45)
[2021-01-03] MEDS ORDERED: INFLUENZA VIRUS VACCINE 0.5 ML SYRINGE IM ONE (09:32)
[2021-01-03] MEDS ORDERED: DIPH/TET/ACEL PERT BOOSTER VACCINE 0.5 ML VIAL IM ONE (09:32)
[2021-01-03 11:25] VITALS: BP 128/78
== END 2021-01-03 14:05 | disposition home or self-care (01) | DRG 540 ==
LOC: N.LD 05:53 → N.OB 12:46
PROVIDERS: ADMIT Obstetrics & Gynecology; ATTEND Obstetrics & Gynecology
PROC: LDCSECT (ICD-10-PCS; 2021-01-01 07:00)